=== PATIENT | male | born 1990 | race Caucasian/White ===

== ENCOUNTER 2018-07-09 00:27 | Emergency (ER) | payer SELFPAY ==
[2018-07-09] MEDS ORDERED: predniSONE 20 MG TAB PO ONE (00:39)
[2018-07-09] MEDS ORDERED: IPRATROPIUM/ALBUTEROL 3 ML DEYVIAL IH ONE (00:39)
[2018-07-09 01:07] VITALS: BP 126/79
[2018-07-09] MEDS ORDERED: ALBUTEROL INH PREPACK MDI TAKEHOME ONE (01:07)
--- NOTE | 2018-07-09 01:10 | EDPHY ---
H & P Stated Complaint: "I'm having an asthma attack". SOB since mid-day, now worse. Time Seen by Provider: 07/09/18 00:34 HPI/ROS: 27-year-old male presents complaining of asthma attack. 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 He has noticed some itchy eyes than nasal drainage over the last couple of days which he believes is secondary to seasonal allergies. He denies fevers or chills. While at work today he became short of breath had cough and had some wheezing which felt similar to multiple prior asthma attacks in the past. He has never been admitted to the hospital for his asthma, no intubations and no recent emergency department visits. He is not currently using any medications for asthma, moved to [place] in March of this year and has not used his inhaler during that time. Review of systems As per HPI General no fever no chills no weakness HEENT no eye pain no eye discharge. No eye redness, no sore throat Respiratory positive cough, positive shortness of breath Cardiac no chest pain, no peripheral edema GI no abdominal pain, no diarrhea, no constipation, no nausea, no vomiting no flank pain, no hematuria, no dysuria Musculoskeletal no myalgias, no joint pain Heme no easy bruising, no easy bleeding Endo no polyuria, no polydipsia Skin no rashes, no pruritus Neuro no syncope, no dizziness, no headaches Psych is no suicidal ideation, no homicidal ideation Source: Patient, Family Exam Limitations: No limitations - Personal History Current Tetanus Diphtheria and Acellular Pertussis (TDAP): Yes - Medical/Surgical History Hx Asthma: Yes Hx Chronic Respiratory Disease: No Hx Diabetes: No Hx Cardiac Disease: No Hx Renal Disease: No Hx Cirrhosis: No Hx Alcoholism: No Hx HIV/AIDS: No Hx Splenectomy or Spleen Trauma: No Other PMH: asthma - Social History Smoking Status: Unknown if ever smoked Alcohol Use: Occasionally Drug Use: None - Physical Exam Exam: 27-year-old male Alert and oriented nontoxic appearance, no acute distress afebrile Atraumatic normocephalic Extraocular muscles intact, anicteric Nares mild yellowish discharge Oropharynx mild erythema no tonsillar swelling no exudate no uvular deviation, tolerating own secretions Neck supple no lymphadenopathy Lungs clear to auscultation bilaterally, scattered wheeze Heart regular rate and rhythm Abdomen normoactive bowel sounds soft nontender Extremities no cyanosis clubbing or edema Skin no rash Constitutional: Initial Vital Signs Temperature (C) 37.1 C 07/09/18 00:34 Heart Rate 89 07/09/18 00:34 Respiratory Rate 24 H 07/09/18 00:34 Blood Pressure 138/96 H 07/09/18 00:34 O2 Sat (%) 94 07/09/18 00:34 O2 Delivery Mode Room Air Allergies/Adverse Reactions: No Known Allergies Allergy (Unverified 07/09/18 00:34) Home Medications: Medication Instructions Recorded predniSONE 40 mg PO DAILY 5 Days #10 tab 07/09/18 Medical Decision Making ED Course/Re-evaluation: Patient seen and evaluated for cough, asthma attack Per patient. Given a DuoNeb and prednisone 60 mg p.o.. Patient feeling markedly improved after breathing treatment. Impression Mild asthma exacerbation likely secondary to seasonal allergies Plan Refer to [facility] home with an albuterol inhaler with a spacer and a prescription for prednisone burst 40 mg p.o. Q.day x5 days Differential Diagnosis: Differential diagnosis considered but not limited to: URI, bronchitis, asthma exacerbation, COPD exacerbation, anxiety - Data Points Medications Given: Discontinued Medications Albuterol Sulfate (Proventil Inh Prepack) 1 mdi TAKEHOME EDNOW ONE Stop: 07/09/18 01:08 Last Admin: 07/09/18 01:22 Dose: 1 mdi Albuterol/Ipratropium (Duoneb) 3 ml IH EDNOW ONE Stop: 07/09/18 00:40 Last Admin: 07/09/18 00:46 Dose: 3 ml Prednisone (Prednisone) 60 mg PO EDNOW ONE Stop: 07/09/18 00:40 Last Admin: 07/09/18 00:42 Dose: 60 mg Departure - Departure Disposition: Home, Routine, Self-Care Clinical Impression: Asthma attack, Asthma Condition: Good Instructions: Asthma (ED) Referrals: [facility] [Provider Group] - As per Instructions Stand Alone Forms: Work Excuse Prescriptions: predniSONE 40 mg PO DAILY 5 Days #10 tab
== END 2018-07-09 01:25 | disposition home or self-care (01) ==
LOC: CED 00:27
DX: J45.901 Unspecified asthma with (acute) exacerbation (principal)
CPT/HCPCS: 99283-ER; J7512